=== PATIENT | male | born 1975 | race Caucasian/White ===

== ENCOUNTER 2018-03-15 19:32 | Emergency (ER) | payer BC ==
[2018-03-15 20:02] VITALS: BP 132/92
[2018-03-15] MEDS ORDERED: Tenofovir/Emtricitab 200/300 * TAB PO ONE ×2 (20:30→20:32)
[2018-03-15] MEDS ORDERED: Tetan/Diph/Pertus SYR(Tdap)* 0.5 ML SYR(BOOSTRIX) use SYR IM ONE (20:30)
[2018-03-15] MEDS ORDERED: Raltegravir* 400 MG TAB PO ONE ×2 (20:31→20:33)
--- NOTE | 2018-03-15 20:58 | UC ---
General HPI - HPI Summary HPI Summary: patient has a long history of alcohol abuse / dependence---3 nights ago he injected "ANSHU" is here seeking HIV PEP - History of Current Complaint Chief Complaint: UCGeneralIllness Stated Complaint: PERSONAL Time Seen by Provider: 03/15/18 19:58 Hx Obtained From: Patient Onset/Duration: Sudden Onset, Lasting Days - about 2 and 1/2 days ago Timing: Constant Pain Intensity: 0 - Allergy/Home Medications Allergies/Adverse Reactions: Allergies Allergy/AdvReac Type Severity Reaction Status Date / Time No Known Allergies Allergy Verified 03/15/18 19:51 PMH/Surg Hx/FS Hx/Imm Hx Previously Healthy: No - Polysubstance dependance - Surgical History Surgical History: Yes Surgery Procedure, Year, and Place: HERNIA REPAIR. FOREARM TENDON REPAIR. BIOPSY OF GROWTH ON CHEST- BENIGN - Family History Known Family History: Positive: Other - alcohol dependence - Social History Occupation: Employed Full-time Lives: With Family Alcohol Use: Daily Substance Use Type: Marijuana Smoking Status (MU): Heavy Every Day Tobacco Smoker Type: Cigarettes Amount Used/How Often: 1 PPD Review of Systems Constitutional: Negative Skin: Other - track warren no abscess right arm Eyes: Negative ENT: Negative Respiratory: Negative Cardiovascular: Negative Gastrointestinal: Negative Genitourinary: Negative Motor: Negative Neurovascular: Negative Musculoskeletal: Negative Neurological: Negative Psychological: Negative Is Patient Immunocompromised?: No All Other Systems Reviewed And Are Negative: Yes Physical Exam Triage Information Reviewed: Yes Appearance: Well-Appearing, No Pain Distress, Well-Nourished Vital Signs: Initial Vital Signs Temp 98.4 F 03/15/18 19:52 Pulse 94 03/15/18 19:52 Resp 16 03/15/18 19:52 BP 132/92 03/15/18 19:52 Pulse Ox 98 03/15/18 19:52 Vital Signs Reviewed: Yes Eye Exam: Normal Eyes: Positive: Conjunctiva Clear ENT Exam: Normal ENT: Positive: Normal ENT inspection, Hearing grossly normal. Negative: Trismus , Muffled voice, Hoarse voice Dental Exam: Normal Neck exam: Normal Neck: Positive: 1 Respiratory Exam: Normal Respiratory: Positive: Chest non-tender, No respiratory distress, No accessory muscle use Cardiovascular Exam: Normal Cardiovascular: Positive: RRR, Pulses Normal, Brisk Capillary Refill Musculoskeletal Exam: Normal Musculoskeletal: Positive: Strength Intact, ROM Intact, No Edema Neurological Exam: Normal Neurological: Positive: Alert, Muscle Tone Normal Psychological Exam: Normal Skin Exam: Other Skin: Positive: Other - track warren right arm Course/Dx - Course Course Of Treatment: lab studies, HIV PEP, SBIRT 30minutes, referral to treatment - Differential Dx - Multi-Symptom Provider Diagnoses: polysubstance abuse disorder, potential infectious disease exposure Discharge - Sign-Out/Discharge Documenting (check all that apply): Discharge/Admit/Transfer - Discharge Plan Condition: Stable Disposition: HOME Prescriptions: Emtricitabine/Tenofovir (Tdf) [Truvada 200 mg-300 mg Tablet] 1 each PO DAILY # 21 tablet Ondansetron ODT TAB* [Zofran 4 MG Odt TAB*] 4 mg PO Q8H PRN #12 tab.odt PRN Reason: Nausea/Vomiting Raltegravir* [Isentress*] 400 mg PO BID #42 tab Patient Education Materials: Postexposure Prophylaxis (ED), Polysubstance Abuse (ED), Alcohol Dependence (ED) Referrals: Channing FLOYD,Colby Quezada [Medical Doctor] - 3 Days [facility] [Outside[facility] [Outside] [facility] [Outside] [facility] [Outside] [facility] [Outside] [facility] [Outside] - Billing Disposition and Condition Condition: STABLE Disposition: Home
[2018-03-16 11:00] LABS: Hematocrit 49 % (42-52); Hemoglobin 16.5 g/dl (14.0-18.0); Mean Corpuscular HGB Conc 34 g/dl (31-36); Mean Corpuscular Hemoglobin 31 pg (27-31); Mean Corpuscular Volume 91 fL (80-94); Platelet Count 249 10^3/ul (150-450); Red Blood Count 5.35 10^6/ul (4.00-5.40); Red Cell Distribution Width 13 % (10.5-15)
[2018-03-16 11:16] LABS: EGFR Non-African American 83.3 (>60)
[2018-03-16 11:38] LABS: ABS Basophils 0.1 10^3/ul (0-0.2); ABS Eosinophils 0.1 10^3/ul (0-0.6); ABS Lymphocytes 1.5 10^3/ul (1.0-4.8); ABS Monocytes 0.9 10^3/ul (0-0.8); ABS Neutrophils 10.4 10^3/ul (1.5-7.7); ABS Nucleated RBC 0 10^3/ul; Lymphocyte % 11.6 % (25-47); Nucleated Red Blood Cells % 0.2
== END 2018-03-15 21:33 | disposition home or self-care (01) ==
LOC: UCCORT 19:32
DX: F19.10 Other psychoactive substance abuse, uncomplicated (principal); F17.210 Nicotine dependence, cigarettes, uncomplicated; R23.8 Other skin changes; Z20.89 Contact with and (suspected) exposure to other communicable diseases
CPT/HCPCS: 36415; 80053; 85025; 86703; 86706; 86803; 87340; 90715; 96372; 99203; G0463

== ENCOUNTER 2020-01-04 11:06 | Emergency (ER) | payer BC ==
[2020-01-04 11:29] VITALS: BP 128/89
--- NOTE | 2020-01-04 11:57 | UC ---
Neck Pain HPI - HPI Summary HPI Summary: 44yo male presenting with "stiff neck" gradually worsening x1 month. Patient states he has right buttock pain and mild right mid back stiffness but "those improve with ibuprofen." Patient states he has not had any injury or trauma recently. Denies MVA as well. States neck stiffness turns into pain with any movement of neck. States he has to turn his whole body to look left and right. States neck pain radiates into back of his head. Also states "shock" through neck with any quick jerk of his neck. Denies numbness and tingling. Denies decreased strength. Denies neck injury in the past. Patient states that he works with someone who prescribed flexeril to his last week. He states he is taking 1-2 10mg tabs daily for the last week with minimal improvement. Also states he is taking "a ridiculous amount of ibuprofen." States he is getting "paranoid that he has a spinal cord tumor." - History of Current Complaint Chief Complaint: UCGeneralIllness Stated Complaint: RTBUTT,BACK,NECK ,HEAD PAIN Hx Obtained From: Patient Pain Intensity: 8 Pain Scale Used: 0-10 Numeric - Allergies/Home Medications Allergies/Adverse Reactions: Allergies Allergy/AdvReac Type Severity Reaction Status Date / Time No Known Allergies Allergy Verified 01/04/20 11:29 Home Medications: Home Medications Cyclobenzaprine TAB* [Flexeril 10 MG TAB*] 10 mg PO BID PRN 01/04/20 [History Confirmed 01/04/20] PMH/Surg Hx/FS Hx/Imm Hx Previously Healthy: Yes - Surgical History Surgical History: Yes Surgery Procedure, Year, and Place: HERNIA REPAIR. FOREARM TENDON REPAIR. BIOPSY OF GROWTH ON CHEST- BENIGN - Family History Known Family History: Positive: Other - alcohol dependence - Social History Alcohol Use: Occasionally Substance Use Type: Marijuana Smoking Status (MU): Heavy Every Day Tobacco Smoker Type: Cigarettes Amount Used/How Often: 1 PPD Review of Systems All Other Systems Reviewed And Are Negative: Yes Constitutional: Positive: Negative Skin: Positive: Negative Eyes: Positive: Negative Respiratory: Positive: Negative Cardiovascular: Positive: Negative Gastrointestinal: Positive: Negative Neurovascular: Positive: Negative Musculoskeletal: Positive: Arthralgia - neck pain, Decreased ROM - neck. Negative: Edema Neurological/Mental Status: Positive: Negative. Negative: Paresthesia, Numbness Physical Exam - Summary Physical Exam Summary: Vital Signs Reviewed: Yes A+Ox3, no distress Eyes: Conjunctiva Clear ENT: Hearing grossly normal neck: supple Respiratory: Positive: No respiratory distress, No accessory muscle use Cardiovascular: skin color reflect adequate perfusion Musculoskeletal Exam: ADAIR x 4 without difficulty, no TTP of neck or head, ROM decreased - neck flexion, extension, left/right rotation and lateral flexion. Neurological: Positive: Alert, ambulatory without difficulty Psychological: Positive: age appropriate behavior Skin: Positive: no rash, no ecchymosis Vital Signs: Initial Vital Signs Temp 98.4 F 01/04/20 11:23 Pulse 113 01/04/20 11:23 Resp 14 01/04/20 11:23 BP 128/89 01/04/20 11:23 Pulse Ox 98 01/04/20 11:23 Diagnostics - Radiology cervical Radiology Interpretation Completed By: Radiologist Summary of Radiographic Findings: FINDINGS: The cervical spine is visualized from the skull base through C7-T1. ALIGNMENT: There is straightening with reversal of the normal cervical lordosis. VERTEBRAL BODIES: There is anterolateral marginal osteophyte formation most pronounced at C5-C6. JOINTS: There is uncovertebral hypertrophy. On the oblique views, there is moderate right neuroforaminal narrowing C4-C5 with severe narrowing at C5-C6. There is mild left neuroforaminal narrowing at C3-C4. INTERVERTEBRAL DISCS: There is diffuse loss of intervertebral disc height. SOFT TISSUE: The prevertebral soft tissues are normal. OTHER: The skull base is normal. The lung apices are clear. IMPRESSION: DEGENERATIVE DISC DISEASE AND OSTEOARTHRITIS DESCRIBED ABOVE. Neck Pain Course/Dx - Course Course Of Treatment: Discussed radiograph findings with patient. I provided with soft cervical collar which patient states provides some relief. I instructed to continue with ibuprofen and flexeril as directed. Provided with ortho follow up but patient [place] Patient voiced understanding and agreed with treatment plan. - Differential Dx/Diagnosis Differential Dx/HQI/PQRI: Arthritis, Sprain, Strain Provider Diagnosis: Osteoarthritis cervical spine, Neuroforaminal stenosis of cervical spine, Degenerative disc disease, cervical Discharge ED - Sign-Out/Discharge Documenting (check all that apply): Patient Departure All imaging exams completed and their final reports reviewed: Yes - Discharge Plan Condition: Stable Disposition: HOME Patient Education Materials: Degenerative Disc Disease (ED), Osteoarthritis (ED ) Referrals: Phoenix Arnett MD [Medical Doctor] - Additional Instructions: As discussed, your radiographs revealed significant degenerative disc disease and osteoarthritis. Use the soft collar and perform mild stretching. You may continue with ibuprofen and tylenol as directed for pain relief. You may also continue with flexeril as prescribed. Follow up with your primary care provider or the referral listed below for further evaluation. - Billing Disposition and Condition Condition: STABLE Disposition: Home
== END 2020-01-04 12:54 | disposition home or self-care (01) ==
LOC: UCCORT 11:06
DX: M47.812 Spondylosis without myelopathy or radiculopathy, cervical region (principal); M48.02 Spinal stenosis, cervical region; M50.322 Other cervical disc degeneration at C5-C6 level; F17.210 Nicotine dependence, cigarettes, uncomplicated
CPT/HCPCS: 72050; 99212; G0463